=== PATIENT | male | born 1985 | race Caucasian/White ===

== ENCOUNTER 2016-09-10 12:54 | Emergency (ER) | payer OTHER ==
[~2016-09-10 12:54] MED LIST: CYCL10TA PO; EFFE75CA75 PO; FLUO10CA9 PO; GABA300C3 PO; HYDR-3716 PO; PAXI10TA2 PO; QUET1TAB7 PO
--- NOTE | 2016-09-10 14:46 | REP ---
Left rib series and PA chest: Left ribs four views: There is no rib fracture or other rib abnormality. PA chest: Comparisons 06/10/2013. There is no pneumothorax, hemothorax or pulmonary contusion. Lung vu are clear. Cardiac size is normal. The bowen, mediastinum, and bony thorax are unremarkable. Impression: Negative PA chest. There is no interval change. Signed by Adolph Young MD 09/10/2016 02:38 P
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
== END 2016-09-10 14:56 | disposition home or self-care (01) ==
LOC: M ED 12:54
DX: R07.89 Other chest pain (principal); M54.5 Low back pain; F32.9 Major depressive disorder, single episode, unspecified; F17.210 Nicotine dependence, cigarettes, uncomplicated

== ENCOUNTER 2016-12-17 16:18 | Emergency (ER) | payer OTHER ==
[~2016-12-17] VITALS: Ht 175.3 cm; Wt 104.3 kg
[~2016-12-17 16:18] MED LIST changes: +GABA-282 PO; -GABA300C3 PO
[2016-12-17] MEDS ORDERED: NORCO, ANEXSIA 5/325MG TABLET (HYDROcodone/ACETAMINOPHEN) PO ONE (17:15)
--- NOTE | 2016-12-17 17:37 | REP ---
Clinical: Trauma. Technique: AP, lateral, bilateral oblique views of the left hand. Findings: There is a nondisplaced fracture at the base of the fifth metacarpal bone with overlying soft tissue swelling. Remainder of the examination appears normal. Impression: Nondisplaced fracture at the base of the fifth metacarpal bone. Signed by Ignacio Sam MD 12/17/2016 05:28 P
[2016-12-17] MEDS ORDERED: NORCOTAB PO (17:44)
[2016-12-17 17:55] VITALS: BP 154/94
== END 2016-12-17 17:56 | disposition home or self-care (01) ==
LOC: M ED 17:22
DX: S62.347A Nondisplaced fracture of base of fifth metacarpal bone, left hand, initial encounter for closed fracture (principal); W23.0XXA Caught, crushed, jammed, or pinched between moving objects, initial encounter; Y92.019 Unspecified place in single-family (private) house as the place of occurrence of the external cause; Y93.89 Activity, other specified; F41.9 Anxiety disorder, unspecified; F32.9 Major depressive disorder, single episode, unspecified; G89.29 Other chronic pain; F17.200 Nicotine dependence, unspecified, uncomplicated

== ENCOUNTER 2018-01-12 07:14 | Emergency (ER) | payer SELFPAY, OTHER ==
[2018-01-12] MEDS: PERCOCET 5MG/325MG TAB PO (09:19)
== END 2018-01-12 10:34 | disposition home or self-care (01) ==
LOC: M ED 07:14
DX: S39.012A Strain of muscle, fascia and tendon of lower back, initial encounter (principal); S40.021A Contusion of right upper arm, initial encounter; W18.09XA Striking against other object with subsequent fall, initial encounter; Y92.89 Other specified places as the place of occurrence of the external cause; Y93.9 Activity, unspecified; Y99.9 Unspecified external cause status; G89.29 Other chronic pain; M54.9 Dorsalgia, unspecified; F41.9 Anxiety disorder, unspecified; F32.9 Major depressive disorder, single episode, unspecified; Z72.0 Tobacco use; F12.10 Cannabis abuse, uncomplicated; M51.37 Other intervertebral disc degeneration, lumbosacral region; Z88.8 Allergy status to other drugs, medicaments and biological substances
CPT/HCPCS: 73030

== ENCOUNTER 2019-03-07 07:58 | Emergency (ER) | payer OTHER, SELFPAY ==
[~2019-03-07] VITALS: Ht 175.3 cm; Wt 111.4 kg
[~2019-03-07 07:58] MED LIST changes: +EFFE75CA2 PO; -EFFE75CA75 PO; -GABA-282 PO; +GABA-843 PO; +HYDR-3715 PO; +IBUP200T45 PO; +PAXI10TA12 PO; -PAXI10TA2 PO; +TYLE325T5 PO
[2019-03-07] MEDS ORDERED: KETOROLAC 60 MG/2 ML VIAL (J1885) IM ONE (08:45)
[2019-03-07] MEDS ORDERED: NORCO, ANEXSIA 5/325MG TABLET (HYDROcodone/ACETAMINOPHEN) PO ONE (08:45)
--- NOTE | 2019-03-07 09:16 | REP ---
Clinical: Left-sided sciatica and lower back pain . Technique: AP, lateral, bilateral oblique, and coned-down views. Findings: Alignment and lordosis is maintained. The vertebral bodies including transverse process and spinous processes are intact and normal. There is no evidence for acute fracture / compression injury or subluxation. No evidence for spondylolysis or spondylolisthesis. There are mild endplate sclerosis and disc space narrowing at L5-S1 similar to CT dated 01/12/2018. Impression: Minimal degenerative changes at L5-S1 stable. Electronically Signed by Ignacio Sam MD 03/07/2019 09:07 A
[2019-03-07] MEDS ORDERED: KETO10TAB PO (10:01)
[2019-03-07] MEDS ORDERED: NORC1TAB7 PO (10:01)
[2019-03-07] MEDS ORDERED: METH4PACK PO (10:01)
[2019-03-07] MEDS ORDERED: MEDI-453 MC (10:08)
[2019-03-07 10:20] VITALS: BP 136/78
== END 2019-03-07 10:22 | disposition home or self-care (01) ==
LOC: M ED 07:58
DX: M54.42 Lumbago with sciatica, left side (principal); F17.210 Nicotine dependence, cigarettes, uncomplicated
CPT/HCPCS: 72110; 96372; 99283; J1885

== ENCOUNTER 2021-09-25 09:18 | Emergency (ER) | payer OTHER ==
[~2021-09-25] VITALS: Ht 177.8 cm; Wt 128.8 kg
[~2021-09-25 09:18] MED LIST changes: +CYCL-707 PO; -CYCL10TA PO; +GABA-282 PO; -GABA-843 PO; -IBUP200T45 PO; +IBUP200T46 PO; +KETO10TAB PO; +MEDI-453 MC; +METH4PACK PO; +NORC1TAB7 PO; +QUET1TAB17 PO; -QUET1TAB7 PO
[2021-09-25] MEDS ORDERED: KETO10TAB PO (13:03)
[2021-09-25 13:10] VITALS: BP 134/94
== END 2021-09-25 13:15 | disposition home or self-care (01) ==
LOC: M ED 09:18
DX: S06.0X0A Concussion without loss of consciousness, initial encounter (principal); S29.011A Strain of muscle and tendon of front wall of thorax, initial encounter; S23.41XA Sprain of ribs, initial encounter; W00.0XXA Fall on same level due to ice and snow, initial encounter; Y92.009 Unspecified place in unspecified non-institutional (private) residence as the place of occurrence of the external cause; Y93.9 Activity, unspecified; Y99.9 Unspecified external cause status; G89.29 Other chronic pain; M54.50 Low back pain, unspecified

== ENCOUNTER 2022-11-17 12:45 | Emergency (ER) | payer OTHER ==
[~2022-11-17] VITALS: Ht 177.8 cm; Wt 124.4 kg
[~2022-11-17 12:45] MED LIST changes: -PAXI10TA12 PO; +PAXI10TA13 PO
[2022-11-17 12:46] VITALS: BP 146/86
[2022-11-17] MEDS ORDERED: BOOSTRIX/ADACEL VACCINE (DIPHTH/PERTUSS/ACELL/TETANUS) 0.5ML SYR IM ONE (14:05)
[2022-11-17] MEDS ORDERED: IBUPROFEN 600MG TAB PO ONE (14:10)
== END 2022-11-17 14:23 | disposition home or self-care (01) ==
LOC: M ED 12:45
DX: S01.01XA Laceration without foreign body of scalp, initial encounter (principal); W22.8XXA Striking against or struck by other objects, initial encounter; Y92.009 Unspecified place in unspecified non-institutional (private) residence as the place of occurrence of the external cause; M54.50 Low back pain, unspecified; F41.9 Anxiety disorder, unspecified; Z23 Encounter for immunization

== ENCOUNTER 2022-11-25 11:09 | Emergency (ER) | payer OTHER ==
[~2022-11-25] VITALS: Ht 177.8 cm; Wt 127.2 kg
[2022-11-25 11:09] VITALS: BP 157/83
== END 2022-11-25 13:08 | disposition home or self-care (01) ==
LOC: M ED 11:09
DX: Z48.02 Encounter for removal of sutures (principal)

== ENCOUNTER 2023-03-13 08:43 | Emergency (ER) | payer OTHER ==
[~2023-03-13] VITALS: Ht 175.3 cm; Wt 117.7 kg
[2023-03-13 08:43] VITALS: BP 157/88; TEMP 98.1; O2SAT 97
[2023-03-13] MEDS ORDERED: METH-1164 PO (11:45)
[2023-03-13] MEDS ORDERED: KETOROLAC 30 MG/ML 1ML VIAL IM ONE (11:45)
== END 2023-03-13 12:43 | disposition home or self-care (01) ==
LOC: M ED 08:43
DX: S20.20XA Contusion of thorax, unspecified, initial encounter (principal); V86.56XA Driver of dirt bike or motor/cross bike injured in nontraffic accident, initial encounter; Y92.410 Unspecified street and highway as the place of occurrence of the external cause

== ENCOUNTER 2025-02-08 10:51 | Emergency (ER) | payer OTHER ==
[~2025-02-08] VITALS: Ht 177.8 cm; Wt 116.3 kg
[~2025-02-08 10:51] MED LIST changes: +GABA-1172 PO; -GABA-282 PO; +METH-1164 PO
[2025-02-08 10:56] VITALS: BP 143/81; TEMP 98.5; O2SAT 98
[2025-02-08 11:36] LABS: BASO # 0.1 10^3/uL (0.0-0.2); BASO % 1.1 % (0.0-1.0); EOS # 0.2 10^3/uL (0.0-0.5); EOS % 3.1 % (0.0-3.0); LYMPH # 1.7 10^3/uL (1.5-5.0); LYMPH % 30.7 % (24.0-44.0); MONO # 0.4 10^3/uL (0.0-0.8); MONO % 7.4 % (2.0-8.0); NEUTROPHILS # 3.1 10^3/uL (1.5-8.5); NEUTROPHILS % 57.5 % (36.0-66.0); PLATELET COUNT, AUTOMATED 150 10^3/uL (150-450)
[2025-02-08 11:47] LABS: INR 0.93
[2025-02-08 12:02] LABS: CK-MB VALUE MASS 1.0 NG/ML (<3.6)
[2025-02-08 12:04] LABS: CALCIUM LEVEL 9.4 MG/DL (8.5-10.1); CARBON DIOXIDE LEVEL 24 MMOL/L (20-31); CHLORIDE LEVEL 106 MMOL/L (98-107); CPK CREATINE PHOSPHOKINASE 97 U/L (46-171); CREATININE FOR GFR 0.88 MG/DL (0.70-1.30); GLOMERULAR FILTRATION RATE > 90.0 (>60); MB/CK RELATIVE INDEX 1.03 (< OR =4); POTASSIUM SERUM 4.2 MMOL/L (3.5-5.1); SODIUM LEVEL 142 MMOL/L (136-145)
[2025-02-08] MEDS ORDERED: ISOVUE-370 76% 100 ML VIAL As Ordered ONE (13:26)
[2025-02-08] MEDS: KETOROLAC 30 MG/ML 1 ML VIAL IV ONE (13:31)
[2025-02-08] MEDS: MORPHINE 4 MG/ML 1 ML VIAL IV ONE (13:31)
[2025-02-08 13:38] LABS: C REACTIVE PROTEIN QUANTITATIV < 0.50 MG/DL (<1.0)
[2025-02-08] MEDS: NS 500 ML IV ONE (13:38)
[2025-02-08 13:51] LABS: ERYTHROCYTE SEDIMENTATION RATE 2 mm/hr (0-15)
[2025-02-08 14:09] LABS: CK-MB VALUE MASS < 1.0 NG/ML (<3.6)
[2025-02-08 14:10] LABS: CPK CREATINE PHOSPHOKINASE 79 U/L (46-171)
[2025-02-08] MEDS ORDERED: HOME MED LIST COMPLETE! XX SCH (14:50)
[2025-02-08] MEDS ORDERED: CYCL-707 PO (15:16)
[2025-02-08] MEDS: CYCLOBENZAPRINE 10 MG TABLET PO ONE (15:35)
== END 2025-02-08 15:42 | disposition home or self-care (01) ==
LOC: M ED 10:51
DX: M79.602 Pain in left arm (principal); R94.31 Abnormal electrocardiogram [ECG] [EKG]; I10 Essential (primary) hypertension; F17.210 Nicotine dependence, cigarettes, uncomplicated; F12.10 Cannabis abuse, uncomplicated; F10.10 Alcohol abuse, uncomplicated; Z79.899 Other long term (current) drug therapy
CPT/HCPCS: 70491; 71045; 71275; 72125; 80048; 82550; 82553; 84145; 84484; 85025; 85610; 85652; 85730; 86140; 93005; 93971; 96361; 96374; 99284; J1885; Q9967